=== PATIENT | female | born 1965 | race African-American/Black ===

== ENCOUNTER 2017-03-31 08:55 | Emergency (ER) | payer SELFPAY ==
[~2017-03-31] VITALS: Ht 160 cm; Wt 93.0 kg
[2017-03-31 09:05] VITALS: BP 111/76
[2017-03-31] MEDS ORDERED: Metoclopramide 10mg/2ml Inj IM ONE (09:30)
[2017-03-31] MEDS ORDERED: Acetaminophen 500mg (ES) tab ORAL ONE (09:45)
--- NOTE | 2017-03-31 10:14 | Diagnostic Imaging Report ---
Indication: Headache Technique: Continuous helical CT scanning of the head was performed without intravenous contrast material. Axial and coronal 5 mm sections were generated. Dose: Total Dose Length Product - DLP [address] Dose Index - CTDIvol(s) 70.38 mGy. Automated exposure control was utilized for dose reduction. Comparison:None. Findings: The ventricular system is normal in size and configuration. There is no shift of midline structures. No abnormal extra-axial fluid collections are noted. There is no evidence of intracerebral bleeding. No other abnormal high or low density areas are noted within the brain. Impression: Normal CT scan of the head without contrast material. The CT scanner at [facility] [place] is accredited by the [employer] and the scans are performed using protocols designed to limit radiation exposure to as low as reasonably achievable to attain images of sufficient resolution adequate for diagnostic evaluation.
[2017-03-31] MEDS ORDERED: CLARITIN10 M2 ORAL (10:29)
[2017-03-31 10:45] VITALS: BP 137/84
[2017-03-31 10:53] LABS: APPEARANCE,URINE CLEAR; KETONES,URINE NEGATIVE (NEGATIVE); LEUKOCYTE ESTERASE ,URINE NEGATIVE (NEGATIVE); NITRITE,URINE NEGATIVE (NEGATIVE); PH,URINE 7 (4.5-8.0); PROTEIN,URINE NEGATIVE (NEGATIVE); UROBILINOGEN,URINE NORMAL MG/DL (0.0-1.0)
[2017-03-31 11:14] LABS: BACTERIA,URINE FEW /HPF; SQUAMOUS EPITHELIAL CELL,UR MODERATE /LPF (NONE/OCC); WBC,URINE 0-2 /HPF (0 - 2)
--- NOTE | 2017-03-31 17:48 | Emergency Room Report ---
History of Present Illness General Chief Complaint: Headache Source: Patient Present Illness HPI Patient is a 51-year-old female presented after increased headache. Patient gradual onset of symptoms. Patient had been having headache for several days. Patient for having some pressure-like sensation to both eyes. She had associated flashing lights to both eyes. She denied any prior head imaging. She denied any nausea or vomiting. She denied any fever. Allergies: Coded Allergies: KETOROLAC (Verified Allergy, Severe, 03/31/17) Facial swelling Patient History Past Medical History: see triage record Last Menstrual Period: on period Now: No Reviewed Nursing Documentation: PMH: Agreed, PSxH: Agreed Nursing Documentation-PMH Past Medical History: No Stated History Review of Systems All Other Systems: negative except mentioned in HPI Physical Exam Vital Signs Date Time Temp Pulse Resp B/P (MAP) Pulse Ox O2 Delivery O2 Flow Rate FiO2 03/31/17 09:00 98.1 58 14 111/76 97 Room Air Sp02 EP Interpretation: reviewed, normal General Appearance: normal inspection, well appearing, no apparent distress, alert, GCS 15 Head: atraumatic ENT: normal ENT inspection, hearing grossly normal, normal voice Neck: normal inspection, full range of motion, supple, no bony tend Respiratory: normal inspection, lungs clear, normal breath sounds, no respiratory distress, no retraction, no wheezing Cardiovascular #1: regular rate, rhythm, no edema Gastrointestinal: normal inspection, normal bowel sounds, non tender, soft, no guarding, no hernia Genitourinary: no CVA tenderness Musculoskeletal: normal inspection, back normal, normal range of motion Neurologic: normal inspection, alert, oriented x3, responsive, 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 Differential diagnoses included but was not limited to skull fracture, subarachnoid hemorrhage, meningitis, aneurysm, mass lesion, intracranial hemorrhage. Because of complexity of patient's case laboratory testing and imaging studies were ordered. The patient was given Tylenol for headache. CT imaging showed no acute abnormality The patient is advised to follow up with primary care doctor in 1-2 days. Patient is advised to return if any worsening condition or if any changes in status that are concerning. Labs Test 03/31/17 09:27 Urine Color Yellow Urine Appearance Clear Urine pH 7 (4.5-8.0) Urine Specific [place] 1.015 (1.005-1.035) Urine Protein Negative (NEGATIVE) Urine Glucose (UA) Negative (NEGATIVE) Urine Ketones Negative (NEGATIVE) Urine Occult Blood 4+ (NEGATIVE) Urine Nitrite Negative (NEGATIVE) Urine Bilirubin Negative (NEGATIVE) Urine Urobilinogen Normal MG/DL (0.0-1.0) Urine Leukocyte Esterase Negative (NEGATIVE) Urine RBC 5-10 /HPF (0 - 2) Urine WBC 0-2 /HPF (0 - 2) Urine Squamous Epithelial Cells Moderate /LPF (NONE/OCC) Urine Bacteria Few /HPF (NONE) Last Vital Signs Date Time Temp Pulse Resp B/P (MAP) Pulse Ox O2 Delivery O2 Flow Rate FiO2 03/31/17 10:45 60 16 137/84 98 Room Air 03/31/17 09:05 98.1 Status: improved Disposition: HOME, SELF-CARE Condition: Stable Scripts Loratadine (CLARITIN) 10 Mg Capsule 10 MG ORAL DAILY, #30 CAP Prov: Bharat Bragg 03/31/17 Referrals: NOT CHOSEN [facility]/,REFERRING (PCP) Patient Instructions: Migraine Headache Bharat Bragg Mar 31, 2017 17:48
== END 2017-03-31 10:41 | disposition home or self-care (01) ==
LOC: EMR 09:41
DX: R51 Headache (principal)
CPT/HCPCS: 70450; 81003; 99283

== ENCOUNTER 2017-08-28 07:45 | Emergency (ER) | payer SELFPAY ==
[~2017-08-28] VITALS: Ht 160 cm; Wt 87.5 kg
[~2017-08-28 07:45] MED LIST: CLARITIN10 M2 ORAL
--- NOTE | 2017-08-28 08:07 | Emergency Room Report ---
History of Present Illness General Chief Complaint: Pain Source: Patient Present Illness HPI Patient presents with complaints of low back pain Reports that she has had back pain for over the past one year Patient reports that the pain exacerbated last week she had taken Motrin with minimal improvement 2 days ago pain worsened patient points to the left lower back region posterior superior iliac crest also paraspinal L34 on the left side Denies any radiation to the leg Denies any loss of control of bowel or urination Denies any numbness or tingling Denies any fall or trauma Allergies: Coded Allergies: KETOROLAC (Verified Allergy, Severe, 03/31/17) Facial swelling Patient History Past Medical History: see triage record Pertinent Family History: none Reviewed Nursing Documentation: PMH: Agreed; PSxH: Agreed Nursing Documentation-PMH Past Medical History: No Stated History Review of Systems All Other Systems: negative except mentioned in HPI Physical Exam Vital Signs Date Time Temp Pulse Resp B/P (MAP) Pulse Ox O2 Delivery O2 Flow Rate FiO2 08/28/17 07:49 97.7 67 20 122/77 99 Room Air 97.7 Sp02 EP Interpretation: reviewed, normal General Appearance: well appearing, alert Head: normocephalic, atraumatic Eyes: bilateral eye PERRL ENT: normal pharynx, no angioedema Neck: supple Respiratory: lungs clear Cardiovascular #1: regular rate, rhythm, no edema Gastrointestinal: non tender, soft Genitourinary: no CVA tenderness Musculoskeletal: other - Uncomfortable on palpation of the left posterior superior iliac crest region, no midline step-offs or tenderness, mild discomfort with straight leg raising on the left side at approximately 30 Neurologic: alert, oriented x3, responsive, 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, motor strength/tone normal, sensory intact Skin: normal color, no rash Lymphatic: no adenopathy Medical Decision Making Diagnostic Impression: Primary Impression: Back pain Additional Impression: UTI (urinary tract infection) ER Course Multiple differentials considered including but not limited to neurological, neurosurgical, infectious pathology Patient's CT imaging shows previous anomaly to L1 and L2 region Patient's urine sample also shows some infectious pathology on reevaluation patient resting comfortably There is significant chronicity to the patient's complaint however give any acute component imaging has been done No obvious acute pathology is seen on the imaging patient will be placed on antibiotics and pain medicine Requires close outpatient follow-up She was also provided imaging and copy of the CT that was obtained Labs Test 08/28/17 08:00 Urine Color Yellow Urine Appearance Slightly cloudy Urine pH 6 (4.5-8.0) Urine Specific [place] 1.020 (1.005-1.035) Urine Protein 2+ (NEGATIVE) Urine Glucose (UA) Negative (NEGATIVE) Urine Ketones 1+ (NEGATIVE) Urine Occult Blood 3+ (NEGATIVE) Urine Nitrite Negative (NEGATIVE) Urine Bilirubin Negative (NEGATIVE) Urine Urobilinogen 1 MG/DL (0.0-1.0) Urine Leukocyte Esterase 3+ (NEGATIVE) Urine RBC 2-4 /HPF (0 - 2) Urine WBC 5-10 /HPF (0 - 2) Urine Squamous Epithelial Cells Moderate /LPF (NONE/OCC) Urine Bacteria Few /HPF (NONE) Urine HCG, Qualitative Negative (NEGATIVE) CT/MRI/US Diagnostic Results CT/MRI/US Diagnostic Results : Impression CT L-spineImpression: Mild superior endplate compression deformities of L1 and L2, acuity indeterminate, but appear nonacute. Clinical correlation recommended. Further evaluation with MRI recommended as indicated. Mild degenerative endplate spurring of the lumbar spine but no critical central stenosis. Last Vital Signs Date Time Temp Pulse Resp B/P (MAP) Pulse Ox O2 Delivery O2 Flow Rate FiO2 08/28/17 07:49 97.7 67 20 122/77 99 Room Air 97.7 Status: improved Disposition: HOME, SELF-CARE Condition: Improved Scripts Acetaminophen With Codeine (T#3) (TYLENOL #3 TAB*) Y Tab 1 TAB ORAL Q8H PRN for For Pain, #12 TAB Prov: Nimco Messer DO 08/28/17 Ibuprofen* (MOTRIN*) 600 Mg Tablet 600 MG ORAL Q8H PRN for For Pain, #20 TAB 0 Refills Prov: Nimco Messer DO 08/28/17 Nitrofurantoin Monohyd/M-Cryst* (MACROBID 100 MG*) 100 Mg Capsule 100 MG ORAL EVERY 12 HOURS for 5 Days, CAP Prov: Nimco Messer DO 08/28/17 Referrals: NOT CHOSEN [facility]/MD,REFERRING (PCP) Additional Instructions: Patient is provided with the discharge instructions notified to follow up with primary doctor in the next 2-3 days otherwise return to the er with any worsening symptoms. Please note that this report is being documented using [employer] technology. This can lead to erroneous entry secondary to incorrect interpretation by the dictating instrument. Nimco Messer DO Aug 28, 2017 08:07
[2017-08-28] MEDS ORDERED: Morphine Sulfate 4mg/ml Inj IM ONE (08:15)
[2017-08-28 08:17] LABS: APPEARANCE,URINE SLIGHTLY CLOUDY; BILIRUBIN, URINE NEGATIVE (NEGATIVE); GLUCOSE, URINE (UA) NEGATIVE (NEGATIVE); KETONES,URINE 1+ (NEGATIVE); LEUKOCYTE ESTERASE ,URINE 3+ (NEGATIVE); NITRITE,URINE NEGATIVE (NEGATIVE); PH,URINE 6 (4.5-8.0); PROTEIN,URINE 2+ (NEGATIVE); UROBILINOGEN,URINE 1 MG/DL (0.0-1.0)
[2017-08-28 08:27] LABS: COLOR,URINE YELLOW
[2017-08-28 08:58] VITALS: BP 124/74
--- NOTE | 2017-08-28 09:16 | Diagnostic Imaging Report ---
Indication: Back pain Technique: CT lumbar spine was performed utilizing automated exposure control without intravenous contrast material. Axial and coronal images were generated. CT dose: Total DLP 497 mGycm; CTDI vol 18.4 mGy Comparison: None Findings: Mild superior endplate compression deformities are seen of L1 and L2. Superior endplate Schmorl's nodes of L2 are also seen. The lumbar alignment is within normal limits. No critical central stenosis is identified. Bone mineralization is normal. Mild multilevel degenerative endplate spurring is seen. Impression: Mild superior endplate compression deformities of L1 and L2, acuity indeterminate, but appear nonacute. Clinical correlation recommended. Further evaluation with MRI recommended as indicated. Mild degenerative endplate spurring of the lumbar spine but no critical central stenosis. The CT scanner at [facility] is accredited by the [employer] and the scans are performed using protocols designed to limit radiation exposure to as low as reasonably achievable to attain images of sufficient resolution adequate for diagnostic evaluation.
[2017-08-28] MEDS ORDERED: ACETAMINOPHEN-1 EAC1 ORAL (10:02)
[2017-08-28] MEDS ORDERED: NITROFURANTOIN100 M2 ORAL (10:02)
[2017-08-28] MEDS ORDERED: IBUPROFEN600 MG ORAL (10:02)
[2017-08-28 10:43] VITALS: BP 124/74
== END 2017-08-28 10:43 | disposition home or self-care (01) ==
LOC: EMR 08:03
DX: M54.5 Low back pain (principal); N39.0 Urinary tract infection, site not specified
CPT/HCPCS: 72131; 81003; 81025; 96372; 99284; J2270